=== PATIENT | female | born 1940 | race Caucasian/White ===

== ENCOUNTER → 2016-11-18 | Outpatient (CLI) | payer OTHER ==
[2016-11-18 15:54] LABS: MAGNESIUM 1.9 mg/dL (1.6-2.4)
== END ==
LOC: LAB 15:21
PROVIDERS: ATTEND Specialist
DX: I50.21 Acute systolic (congestive) heart failure (principal)
CPT/HCPCS: 36415; 83735; 83880

== ENCOUNTER → 2016-11-19 | Outpatient (CLI) | payer OTHER | LOC: MMPC 10:00 | PROVIDERS: ATTEND Specialist | DX: I50.21 Acute systolic (congestive) heart failure (principal); I34.0 Nonrheumatic mitral (valve) insufficiency; D17.79 Benign lipomatous neoplasm of other sites | CPT/HCPCS: 99213; G0463 ==

== ENCOUNTER → 2017-01-11 | Outpatient (CLI) | payer OTHER ==
[2017-01-11 11:40] LABS: BASOPHILS # (AUTO) 0.06 10*3/UL; BASOPHILS % (AUTO) 0.9 % (0-1); EOSINOPHILS % (AUTO) 5.3 % (0-8); HEMATOCRIT 41.6 % (37.0-47.0); HEMOGLOBIN 13.8 g/dL (12.0-16.0); IMM GRAN % (AUTO) 0 % (0-5); IMM GRAN# (AUTO) 0 10*3/UL; LYMPHOCYTES # (AUTO) 2.28 10*3/uL; LYMPHOCYTES % (AUTO) 34.7 % (10-50); MEAN CORPUSCULAR HEMOGLOBIN 31.3 PG (27-31); MEAN CORPUSCULAR HGB CONC 33.2 g/dL (33-37); MEAN PLATELET VOLUME 9.8 FL (7.4-12.2); MONOCYTES # (AUTO) 0.48 10*3/UL (0.3-0.8); MONOCYTES % (AUTO) 7.3 % (5-15); NEUTROPHILS % (AUTO) 51.8 % (50-80); RDW COEFFICIENT OF VARIATION 14.6 % (11.5-14.5); RED BLOOD COUNT 4.41 10^6/uL (4.20-5.40); WHITE BLOOD COUNT 6.57 10^3/uL (4.8-10.8)
[2017-01-11 11:46] LABS: PROTHROMBIN TIME 10.1 secs (9.7-11.4)
[2017-01-11 11:49] LABS: BILIRUBIN,TOTAL 0.6 mg/dL (0.3-1.2); BUN/CREATININE RATIO 16.66 (6-20); CALCIUM 9.4 mg/dL (8.7-10.7); CREATININE 1.2 mg/dL (0.50-1.20); POTASSIUM 4.3 meq/L (3.8-5.2); TOTAL PROTEIN 6.8 g/dL (6.1-8.0)
[2017-01-11 11:50] LABS: HEMOGLOBIN A1C 5.75 % (4.2-6.0); MEAN BLOOD GLUCOSE (CALC) 105.475 mg/dL
[2017-01-11 12:53] LABS: PLATELET MORPHOLOGY COMMENT NORMAL MORPHOLOGY (NORM)
== END ==
LOC: LAB 11:13
PROVIDERS: ATTEND Radiology Diagnostic Radiology
DX: E11.9 Type 2 diabetes mellitus without complications (principal); R91.8 Other nonspecific abnormal finding of lung field
CPT/HCPCS: 36415; 80053; 83036; 85025; 85610; 85730

== ENCOUNTER → 2017-04-08 | Outpatient (CLI) | payer OTHER | LOC: MMPC 10:00 | PROVIDERS: ATTEND Specialist | DX: R06.09 Other forms of dyspnea (principal); M94.0 Chondrocostal junction syndrome [Tietze]; D17.4 Benign lipomatous neoplasm of intrathoracic organs; I49.8 Other specified cardiac arrhythmias; E11.9 Type 2 diabetes mellitus without complications; R60.0 Localized edema; I73.9 Peripheral vascular disease, unspecified | CPT/HCPCS: 99213; G0463 ==

== ENCOUNTER → 2017-06-05 | Outpatient (CLI) | payer OTHER ==
--- NOTE | 2017-06-06 12:06 | DI ---
RIGHT KNEE, 06/05/2017 12:36 PM: Clinical History: Right knee pain. Previous Exam: None at this facility. 3 views are submitted. The AP projection is a standing view. On the sunrise view, there is a vertical fracture through the patella on the lateral aspect. There is moderately severe to severe lateral com partment joint space narrowing. There is osteoporosis. [place]: Nondisplaced vertically oriented fracture through the lateral third of the patella. There is joint sp judith narrowing in the lateral compartment.
== END ==
LOC: RAD 13:34
PROVIDERS: ATTEND Physician Assistant Surgical
DX: M25.561 Pain in right knee (principal); S82.091A Other fracture of right patella, initial encounter for closed fracture
CPT/HCPCS: 73562

== ENCOUNTER 2017-07-15 13:31 | Inpatient (IN) ==
[2017-07-15] MEDS ORDERED: Sodium Chloride 0.9% 1,000 ML PRIMARY IV ONE ×2 (13:58→17:00)
[2017-07-15] MEDS ORDERED: ASPIRIN 81 MG (BABY) CHEWABLE TABLET PO ONE (13:58)
[2017-07-15] MEDS ORDERED: NORMAL SALINE 10 ML SYRINGE FLUSH IVP PRN ×2 (13:58→18:33)
--- NOTE | 2017-07-15 14:01 | EKG ---
[address] [address] Measurements Intervals [place] Rate: 67 P: -20 TN: 155 QRS: 34 QRSD: 96 T: 14 QT: 393 QTc: 408 Interpretive Statements SINUS RHYTHM WITH OCCASIONAL SUPRAVENTRICULAR PREMATURE COMPLEXES INDETERMINATE AXIS PATTERN CONSISTENT WITH PULMONARY DISEASE INTERPRETATION BASED ON A DEFAULT AGE OF 40 YEARS No previous ECG available for comparison Electronically Signed On 07-16-17 08:31:19 MDT by Yaya Jarvis MD [email or web address]
[2017-07-15 14:06] LABS: BASOPHILS # (AUTO) 0.01 10*3/UL; BASOPHILS % (AUTO) 0.1 % (0-1); EOSINOPHILS # (AUTO) 0.02 10*3/UL; EOSINOPHILS % (AUTO) 0.1 % (0-8); Hematocrit [HCT] 40.3 % (37.0-47.0); Hemoglobin [HGB] 13.9 g/dL (12.0-16.0); LYMPHOCYTES # (AUTO) 1.32 10*3/uL; MEAN CORPUSCULAR HGB CONC 34.5 g/dL (33-37); MEAN CORPUSCULAR VOLUME 92.9 FL (81-99); MEAN PLATELET VOLUME 10.2 FL (7.4-12.2); MONOCYTES # (AUTO) 0.56 10*3/UL (0.3-0.8); NEUTROPHILS # (AUTO) 11.97 10*3/UL; NEUTROPHILS % (AUTO) 86.2 % (50-80); RED BLOOD COUNT 4.34 10^6/uL (4.20-5.40)
[2017-07-15 14:12] LABS: BLOOD UREA NITROGEN 33 mg/dL (7-22); SERUM ALBUMIN 4.1 g/dL (3.5-4.8)
[2017-07-15 14:30] LABS: PLATELET MORPHOLOGY COMMENT NORMAL MORPHOLOGY (NORM); RBC MORPHOLOGY COMMENT NORMAL MORPHOLOGY (NORM); WBC MORPHOLOGY COMMENT NORMAL MORPHOLOGY (NORM)
--- NOTE | 2017-07-15 15:04 | DI ---
PA /LATERAL CHEST X-RAY, 07/15/2017 2:00 PM : Clinical History: Right-sided chest pain. Previous Exam: 08/30/2015. There is no acute soft tissue or bony abnormality. There is cardiomegaly with mild CHF. There is disc oid atelectasis in the lingular segment. There is a poorly defined density on the PA film just superi or to the minor fissure. This may be located in the anterior segment of the right upper lobe. No defi nite infiltrate or pleural effusion is present. Mediastinal structures are normal. There are no defin ite pulmonary nodules. Readin. Cardiomegaly with mild CHF. 2. There is a poorly defined density in the right midlung field just superior to the minor fissure a nd this may be in the anterior segment of the right upper lobe.
[2017-07-15] MEDS ORDERED: Sodium Chloride 0.9% 500 ML PRIMARY IV ONE (15:15)
--- NOTE | 2017-07-15 16:23 | DI ---
CT ANGIOGRAM OF THE CHEST, 07/15/2017 3:14 PM : Clinical History: Chest pain. Elevated D-dimer test. The patient has been treated for lung cancer. Previous Exam: None at this facility. Scans are performed from the base of the neck to the lower lung bases following IV administration of 50 mL of Isovue 300. Proprietary automated bolus tracking software was not used to verify the timing of the injection. The base of the neck and thoracic inlet are normal. There are no abnormal axillary, supraclavicular, mediastinal, or hilar nodes. The heart is normal. There is pulmonary arterial hypertension with prese nce of clot in the distal portion of the right main pulmonary artery with a small "saddle" embolus ex tending into branches to the right upper lobe and to the superior segment of the right lower lobe. Cl ots are present in branches to the right middle lobe and also to the basal segments of the right lowe r lobe. No definite clots are seen in the left lung. Multiple pleural-based patchy densities are pres ent in the superior segment of the right upper lobe consistent with small pulmonary infarcts. There i s a 15 mm noncalcified nodule in the posterobasal segment of the right lower lobe that presumably rep resents the lung cancer. There is an 8 mm nodule in the left adrenal gland. The right adrenal gland a nd the spleen and the visualized portions of the liver and pancreas are normal. READIN. There are pulmonary emboli in branches to all lobes of the right lung with a small "saddle" embol us extending between right upper lobe branches and the branch to the superior segment of the right lo wer lobe. Small patchy pulmonary infarcts are present in the anterior segment of the right upper lobe corresponding to the density seen on the recent chest x-ray. No pulmonary emboli are noted in the le ft lung. 2. There is a 15 mm noncalcified nodule in the posterobasal segment of the right lower lobe that pre sumably represents the known lung cancer. There is no adenopathy noted. 3. There is an 8 mm nodule in the left adrenal gland.
[2017-07-15] MEDS ORDERED: LIDOCAINE W/ SODIUM BICARB 0.5 ML SYR SUBD PRN (18:33)
[2017-07-15] MEDS ORDERED: ONDANSETRON 4 MG/2 ML VIAL IVP PRN (18:33)
[2017-07-15] MEDS ORDERED: ACETAMINOPHEN 325 MG TABLET PO PRN (18:33)
[2017-07-15] MEDS ORDERED: LORazepam 1 MG TABLET PO PRN (18:45)
[2017-07-15] MEDS: ENOXAPARIN SODIUM 100 MG/1 ML SYRINGE SUBCUT SCH (20:35)
[2017-07-15] MEDS ORDERED: DEXTROSE 50%-WATER SYRINGE 50 ML SYRINGE IVP PRN (21:10)
[2017-07-15] MEDS ORDERED: Glucagon Inj Vial 1 MG/ML VIAL IM PRN (21:10)
[2017-07-15] MEDS ORDERED: Insulin Sliding Scale Protocol SUBCUT PRN (21:10)
[2017-07-15] MEDS ORDERED: DEXTROSE 31 GM GEL PO PRN (21:10)
--- NOTE | 2017-07-15 21:35 | PDOC ---
History and Physical - History of Present Illness Date and Time of Service: 07/15/20172058 Chief Complaint: Chest pains History of Present Illness: This very pleasant 76-year-old female who has a recent diagnosis of lung cancer treated with radiation therapy and completed that as sole therapy 2 and half months ago, diabetes mellitus type II, amongst other medical issues. She presents with complaints of chest pains that started on Friday. She states that she gets chronic chest pains from GERD and heartburn symptoms, but she developed this on her right side. It then worked its way down and she felt very short of breath and had some pleuritic pain. Due to all the symptoms she came in for evaluation today, she denied any fever, hemoptysis, chills, cough, nausea or vomiting. She was found to have a very massively elevated d-dimer and was found to have a right-sided pulmonary emboli that was characterized as a "saddle" PE with several numerous smaller branch PEs as well. Patient's never had a blood clot before. She still smokes. She is not had any recent trauma or surgery. She had a shot in her knee earlier today for chronic knee pain after her kneecap fracture in the past. She is normally on oxygen at night but was slightly hypoxic in the emergency room. Her pulmonary embolism severity index score was 138, class V giving her a 10-24.5% 30 day mortality. Past Medical History Medical History: 1. Diabetes mellitus type II. 2. Lung cancer with a 15 mm right lower lobe noncalcified nodule. 3. Tobacco abuse. 4. Depression. 5. Chronic lower extremity edema. 6. COPD on oxygen at nighttime. 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 2. 2. Cholecystectomy. 3. Appendectomy. 4. Hysterectomy. 5. Back surgery 2 Pertinent Family History: She has a daughter that had multiple sclerosis and of blood clot complications. Patient's mother lived till 101 years of age. Her father of stroke complications and had diabetes. Past Social History: for over 60 years. 2 daughters, one living. Retired. Smokes. Does not drink very often and minimal amounts of alcohol at that point. Tobacco Use: Current Every Day Smoker Substance Use Type: None Alcohol Use: Rarely Medication / Allergies Home Medications: Home Medications Medication Instructions Recorded Confirmed Type Folic Acid 1 tab PO DAILY tab 07/30/16 07/15/17 History Pot Chloride/Pot Bicarb/Cit AC 1 tab PO qdaily tab 07/30/16 07/15/17 History [Potassium Cl 25 Meq Tab Eff] Spironolactone 1 tab PO DAILY tab 07/30/16 07/15/17 History Bumetanide 2 mg PO DAILY tab 04/08/17 07/15/17 History Citalopram Hydrobromide [Celexa] 1 tab PO QD #90 04/08/17 07/15/17 History Lorazepam [Ativan] 1 tab PO QD PRN #30 04/08/17 07/15/17 History Sitagliptin Phos/Metformin HCl 1 each PO QD tab 04/08/17 07/15/17 History [Janumet 50-500 Mg Tablet] Allergies/Adverse Reactions: Allergies Allergy/AdvReac Type Severity Reaction Status Date / Time Penicillins AdvReac Intermediate hives Verified 07/15/17 18:44 Sulfa (Sulfonamide AdvReac Intermediate hives Verified 07/15/17 18:44 Antibiotics) codien Allergy Severe anaphlaxis Uncoded 07/15/17 18:44 Review of Systems - Review of Systems All Systems: Reviewed & No Additional Complaints Except as Stated (I did a 12 point review systems and it was negative other than that discussed in the history of present illness and that noted below.) - Constitutional Constitutional: REPORTS: Other (The patient has had some weight fluctuations, but has maintained about 190-195 pounds recently) - Respiratory Respiratory: REPORTS: Dyspnea with Exertion, Pleuritic Pain - Cardiovascular Cardiovascular: REPORTS: Chest Pain, See HPI - Gastrointestinal Gastrointestinal / Abdominal: REPORTS: Diarrhea (Generally chronic but was constipated after radiation therapy for a while) - Genitourinary Genitourinary: REPORTS: Negative System Review - Musculoskeletal Musculoskeletal: REPORTS: Joint Pain - Knees (Especially the right knee which had a prior patellar fracture. She had a steroid shot in her right knee today.) - Hematlogic / Lymphatic Hematologic / Lymphatic: REPORTS: Other (History of lung cancer as mentioned, no history of blood clots.) - Neurological Neurologic: REPORTS: Negative System Review - Psychiatric Psychiatric: REPORTS: Depressed (Controlled with medications) Exam - Vitals Vital Signs: Vital Signs Temperature 97.4 F Temperature Source Temporal Artery Scan Pulse Rate [Pulse Oximeter] 68 Pulse Rate 53 Respiratory Rate 20 Blood Pressure [Right Arm] 134/60 Blood Pressure 127/55 Pulse Ox 87 Oxygen Delivery Method Room Air Height 5 ft 1 in Weight 191 lb - General General Appearance: POSITIVE: No Acute Distress, Cooperative - Head Head Exam: POSITIVE: Normal Inspection, Normocephalic, Atraumatic - Eye Eye Exam: POSITIVE: No Scleral Icterus - ENT ENT Exam: POSITIVE: Mucous Membranes Moist - Neck Neck Exam: POSITIVE: Normal Inspection, No Tenderness, No Thyromegaly - Respiratory Respiratory Exam: POSITIVE: Breathing Non Labored, Normal to Percussion and Palpation, Coarse Breath Sounds - Cardiovascular Cardiovascular Exam: POSITIVE: No Murmur, No Clicks, No Gallops, No Rubs, Irregular Rhythm, No JVD - GI/Abdominal GI/Abdominal Exam: POSITIVE: Normal Bowel Sounds, Non Tender, Non Distended, Soft - Rectal Rectal Exam: POSITIVE: Deferred - External Exam: POSITIVE: Deferred Exam: POSITIVE: Deferred - Extremities Extremities Exam: POSITIVE: No Clubbing Present, No Edema Present, No Cyanosis Present - Back Back Exam: POSITIVE: Normal Inspection, No CVA Tenderness - Neurological Neurological Exam: POSITIVE: Alert, Oriented x 3, No Facial Droop, Speech Intact / Clear, Moves All Extremities Equally - Psychiatric Psychiatric Exam: POSITIVE: Normal Affect, Normal Mood - Integumentary Integumentary Exam: POSITIVE: Normal Color, Warm, Dry, Intact - Central Line Examination Central Line Present on Admission: No Results - Labs CBC and BMP: 07/15/17 13:32 07/15/17 13:32 Labs - Last 24 Hours: Laboratory Results 07/15/17 07/15/17 07/15/17 Range/Units 13:32 14:00 15:14 WBC 13.90 H (4.8-10.8) 10^3/uL RBC 4.34 (4.20-5.40) 10^6/uL Hgb 13.9 (12.0-16.0) g/dL Hct 40.3 (37.0-47.0) % MCV 92.9 (81-99) FL MCH 32.0 H (27-31) PG MCHC 34.5 (33-37) g/dL RDW Std Deviation 46.1 (39-50) fL RDW Coeff of Davina 13.9 (11.5-14.5) % Plt Count 238 (140-350) 10*3/uL MPV 10.2 (7.4-12.2) FL Immature Gran % (Auto) 0.1 (0-5) % Neut % (Auto) 86.2 H (50-80) % Lymph % (Auto) 9.5 L (10-50) % [place] % (Auto) 4.0 L (5-15) % Eos % (Auto) 0.1 (0-8) % Baso % (Auto) 0.1 (0-1) % Immature Gran # (Auto) 0.02 10*3/UL Neut # (Auto) 11.97 10*3/UL Lymph # (Auto) 1.32 10*3/uL [place] # (Auto) 0.56 (0.3-0.8) 10*3/UL Eos # (Auto) 0.02 10*3/UL Baso # (Auto) 0.01 10*3/UL WBC Morphology Comment Normal morphology (NORM) Plt Morphology Comment Normal morphology (NORM) RBC Morph Comment Normal morphology (NORM) PT 9.4 L (9.7-11.4) secs INR 0.89 (0.00-5.90) N/A APTT 31.3 (22.6-36.2) SECS D-Dimer 10.69 H (0.00-0.59) mg/L Sodium 137 (135-145) meq/L Potassium 4.5 (3.8-5.2) meq/L Chloride 97 L (98-112) meq/L Carbon Dioxide 27 (23-33) meq/L Anion Gap 13 (5-20) BUN 33 H (7-22) mg/dL Creatinine 1.5 H (0.50-1.20) mg/dL Estimated GFR 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 Setter BUN/Creatinine Ratio 22.00 H (6-20) Glucose 141 H (78-110) mg/dL Calculated Osmolality 292.0 (267-292) mOsm/kg Calcium 9.9 (8.7-10.7) mg/dL Total Bilirubin 0.5 (0.3-1.2) mg/dL AST 18 (8-39) IU/L ALT 26 (9-52) IU/L Alkaline Phosphatase 94 (38-126) IU/L CK-MB (CK-2) 0.71 (0.00-5.00) NG/ML Troponin I < 0.012 (< 0.040) ng/mL NT-Pro-B Natriuret Pep 949 H (0-450) PG/ML Total Protein 7.5 (6.1-8.0) g/dL Albumin 4.1 (3.5-4.8) g/dL Globulin 3.4 (2.50-4.10) g/dL Albumin/Globulin Ratio 1.20 L (1.3-2.0) mg/g - EKG Data -: EKG Interpreted by Me Rate: Normal EKG Shows Normal: Sinus Rhythm - Imaging Status: Image Reviewed by Me (CT scan of the chest on my view does not show any evidence of pneumonia. There does appear to be evidence of right-sided blood clots.) Assessment and Plan - Patient Problems (1) Pulmonary embolism Current Visit: Yes Status: Acute (2) Lung cancer Current Visit: Yes Status: Acute Qualifiers: Laterality: right Lung location: lower lobe of lung Qualified Description: Malignant neoplasm of lower lobe of right lung Qualifier Code (s): (C34.31) Malignant neoplasm of lower lobe, right bronchus or lung (3) Adrenal mass Current Visit: Yes Status: Acute (4) Diabetes mellitus type II, controlled Current Visit: Yes Status: Acute Qualifiers: Diabetes mellitus complication status: without complication Diabetes mellitus terminal clerk insulin use: without terminal clerk use Qualified Description : Controlled type 2 diabetes mellitus without complication, without long-term current use of insulin Qualifier Code(s): (E11.9) Type 2 diabetes mellitus without complications (5) Peripheral edema Current Visit: Yes Status: Acute (6) Wandering (atrial) pacemaker Current Visit: Yes Status: Acute - Assessment / Plan Additional Assessment/Plan Details: Given the PESI score, and class V status, the patient is very high risk, and should be admitted for monitoring, and evaluation for right heart strain. Thus far, she is not hypotensive. Her BNP is elevated a little bit and I'll check it again in the morning, along with an echocardiogram. Given the lung cancer, I cannot assume that she is cancer free and have to presume that this is the provoked cause of the blood clot. I think it best to keep the patient on Lovenox initially, arrange a hematology/oncology follow-up, and definitely follow on this adrenal masses that certainly could be metastasis from the lung cancer. Hold off on Janumet during the hospital stay, especially with CT scan done tonight with contrast. Sliding scale insulin for diabetes during the hospital stay. Oxygen as necessary. If there is any evidence of right heart strain, I think we need to consider transfer for catheter directed lysis of PE vs. systemic code status is full code, discussed with the patient and family The patient and I spoke in depth regarding Coumadin versus Xarelto versus Eliquis, including all risks and benefits, risks being bleeding complications and possible pitfalls of not being able to reverse bleeding with antidotes, and benefits cream treatment of blood clot, lack of drug interactions, and ease of therapy in terms of lab monitoring. However, given the cancer recently, lovenox. the family and the patient agree with the plan
[2017-07-15] MEDS ORDERED: NICOTINE 21 MG /DAY PATCH TRANSDERM ONE (22:19)
[2017-07-15] MEDS ORDERED: NICOTINE 2 MG GUM BUCCAL PRN (22:19)
--- NOTE | 2017-07-15 23:03 | PDOC ---
Chest Pain HPI - General Chief Complaint: Chest Pain Stated Complaint: CHEST PAIN Date Seen by Provider: 07/15/17 Time Seen by Provider: 13:40 Source: Patient Exam Limitations: POSITIVE: No limitations Treatment Prior to Arrival: REPORTS: None Nurse's Notes Reviewed & Considered: Yes - History of Present Illness Initial Comments: The patient is a 76-year-old female. Patient's chief complaint is right sided chest pain which is exacerbated by inspiration and by torsion of her torso. Patient has a history of cancer to her right lung which was diagnosed and treated with radiation last November. Her oncologist is Dr. Simpson in [place]. The patient called her oncologist with these symptoms, and her oncologist advised her to come to the emergency room for evaluation. Patient has a history of COPD and continues to smoke a pack of cigarettes per day. She also has a history of type II diabetes mellitus. She's had a cholecystectomy and back surgery. No cough. No fevers or chills. Body Location Affected: REPORTS: Chest Timing: REPORTS: Abrupt Duration: <24 hours Severity: Moderate Persistent/Worse since (date): 07/14/17 Context: DENIES: Sleep, Rest, Emotional Upset, Activity, Exertion, Other Quality: REPORTS: "Pain", Sharpness, Stabbing Radiation: REPORTS: None Associated Symptoms: REPORTS: Shortness of Breath, Hurts to Breathe. DENIES: Nausea, Vomiting, Diaphoresis, Palpitations, Productive Cough (blood), Productive Cough (sputum), Weakness, Dizziness Modifying Factors: improves with: Deep breathing, Position Change, Pressing On Area Similar Symptoms Previously: No Recently seen/treated/hospitalized: Yes (as above) Any Prior Injuries Related to Current Complaint?: No - Patient Home Medications Home Medications: Home Medications Folic Acid 1 tab PO DAILY tab 07/30/16 Pot Chloride/Pot Bicarb/Cit AC [Potassium Cl 25 Meq Tab Eff] 1 tab PO qdaily tab 07/30/16 Spironolactone 1 tab PO DAILY tab 07/30/16 Bumetanide 2 mg PO DAILY tab 04/08/17 Citalopram Hydrobromide [Celexa] 1 tab PO QD #90 04/08/17 Lorazepam [Ativan] 1 tab PO QD PRN #30 04/08/17 Sitagliptin Phos/Metformin HCl [Janumet 50-500 Mg Tablet] 1 each PO QD tab - Patient Allergies Allergies/Adverse Reactions: Allergies Allergy/AdvReac Type Severity Reaction Status Date / Time Penicillins AdvReac Intermediate hives Verified 07/15/17 18:44 Sulfa (Sulfonamide AdvReac Intermediate hives Verified 07/15/17 18:44 Antibiotics) codien Allergy Severe anaphlaxis Uncoded 07/15/17 18:44 Past Medical History - heen HEENT History: Denies History Cardiovascular History: Denies History, CHF Respiratory History: Other (please comment) Additional Respiratory History: RIGHT LUNG CA WITH RADIATION TREATMENTS 11/2016 , HOME O2 USE AT NIGHT 2.5L/NC Gastrointestinal History: Denies History Genitourinary History: Denies History Endocrine History: Type 2 Diabetes (oral) Musculoskeletal History: Denies History Prosthesis or Implant: No Neurological History: Denies History Blood Disorders: Denies History Psychiatric History: Depression History of Sexually Transmitted Diseases: No Female Reproductive History: Hysterectomy Obstetrical History: Delivery Additional Obstetrical History: x2 Cancer History: Lung In Past Year Been Physically Harmed or Verbally Threatened: No (PER PATIENT) History of MDRO: No History of Other Communicable Diseases: No Tobacco Use: Current Every Day Smoker Alcohol Use: Rarely Substance Use Type: None Previous Surgical History: Yes Type / Date of Surgery: BACK x3, HYSTERECTOMY, CHOLECYSTECTOMY, x2, BILATERAL CATARACT REMOVAL Anesthesia Reactions: No Malignant Hyperthermia: No Family History of Malignant Hyperthermia: No Significant Family History: No pertinent family hx Past Medical History Reviewed: Reviewed - No Changes ROS - Limitations ROS Limitations: No Limitations Constitution: REPORTS: Denies Symptoms Cardiovascular: REPORTS: Chest Pain (As above) Respiratory: REPORTS: Hurts To Breathe, Shortness Of Breath Neurological: REPORTS: Denies Neuro Symptoms Gastrointestinal: REPORTS: Denies GI Symptoms Endocrine: REPORTS: Denies Symptoms Musculoskeletal: REPORTS: Denies MS Symptoms Genitourinary: REPORTS: Denies Symptoms Eyes: REPORTS: Denies Symptoms ENT: REPORTS: Denies Symptoms Skin: REPORTS: Denies Skin Symptoms Lympathic: REPORTS: Denies Lympathic Symptoms Immunologic: POSITIVE: Denies Symptoms Psychiatric: POSITIVE: Denies Psych Symptoms Chest Pain PE - General Appearance General Appearance: REPORTS: Alert, Cooperative, No Acute Distress, No Evidence of Trauma - HEENT HEENT: POSITIVE: Head Inspection Nml, Eyes Inspection Nml, Ears Inspection Nml, Nose Inspection Nml, Oral/Dental Inspect. Nml, Pharynx Inspect. Nml, PERRL, EOMI - Neck Neck: REPORTS: Normal Inspection, No Carotid Bruit - Respiratory Respiratory: REPORTS: No Respiratory Distress, Breath Sounds Normal, Distinct Pain on Movement, See Diagram. DENIES: Chest Non-Tender, Wheezes, Rales, Rhonchi, Respiratory Distress, Right Arm Pain, Left Arm Pain, Trunk Pain, Splinting, Decreased Air Movement - Cardiovascular Cardiovascular: REPORTS: Regular Rate and Rhythm, Heart Sounds Normal, Equal Pulses, Strong Pulses, No Murmur, No Gallop, No Friction Rub, No JVD Peripheral Pulses: Radial (R): 2+, Radial (L): 2+ - Abdomen Abdomen: Soft: (All Quadrants), Normal Bowel Sounds: (All Quadrants), Denies Tenderness: (All Quadrants), No Splenomegaly: (All Quadrants), No Hepatomegaly: (All Quadrants), No Guarding: (All Quadrants), No Rebound: (All Quadrants), No Palpable Pulse: (All Quadrants), No Palpabale Mass: (All Quadrants), No Distention: (All Quadrants), No Rigidity: (All Quadrants) - Skin Skin: REPORTS: Intact, Normal For Race, Warm, Dry, No Rash - Extremities Extremity: Non-Tender: (All Extremities), Normal ROM: (All Extremities), Normal Inspection: (All Extremities) - Neurological / Psychological Neurological: POSITIVE: 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 Chest x-ray shows lesion, right lung. Lab Results Reviewed: Yes Lab Results:: Laboratory Results 07/15/17 07/15/17 07/15/17 Range/Units 13:32 14:00 15:14 WBC 13.90 H (4.8-10.8) 10^3/uL RBC 4.34 (4.20-5.40) 10^6/uL Hgb 13.9 (12.0-16.0) g/dL Hct 40.3 (37.0-47.0) % MCV 92.9 (81-99) FL MCH 32.0 H (27-31) PG MCHC 34.5 (33-37) g/dL RDW Std Deviation 46.1 (39-50) fL RDW Coeff of Davina 13.9 (11.5-14.5) % Plt Count 238 (140-350) 10*3/uL MPV 10.2 (7.4-12.2) FL Immature Gran % (Auto) 0.1 (0-5) % Neut % (Auto) 86.2 H (50-80) % Lymph % (Auto) 9.5 L (10-50) % [place] % (Auto) 4.0 L (5-15) % Eos % (Auto) 0.1 (0-8) % Baso % (Auto) 0.1 (0-1) % Immature Gran # (Auto) 0.02 10*3/UL Neut # (Auto) 11.97 10*3/UL Lymph # (Auto) 1.32 10*3/uL [place] # (Auto) 0.56 (0.3-0.8) 10*3/UL Eos # (Auto) 0.02 10*3/UL Baso # (Auto) 0.01 10*3/UL WBC Morphology Comment Normal morphology (NORM) Plt Morphology Comment Normal morphology (NORM) RBC Morph Comment Normal morphology (NORM) PT 9.4 L (9.7-11.4) secs INR 0.89 (0.00-5.90) N/A APTT 31.3 (22.6-36.2) SECS D-Dimer 10.69 H (0.00-0.59) mg/L Sodium 137 (135-145) meq/L Potassium 4.5 (3.8-5.2) meq/L Chloride 97 L (98-112) meq/L Carbon Dioxide 27 (23-33) meq/L Anion Gap 13 (5-20) BUN 33 H (7-22) mg/dL Creatinine 1.5 H (0.50-1.20) mg/dL Estimated GFR Ndt Inspector BUN/Creatinine Ratio 22.00 H (6-20) Glucose 141 H (78-110) mg/dL Calculated Osmolality 292.0 (267-292) mOsm/kg Calcium 9.9 (8.7-10.7) mg/dL Total Bilirubin 0.5 (0.3-1.2) mg/dL AST 18 (8-39) IU/L ALT 26 (9-52) IU/L Alkaline Phosphatase 94 (38-126) IU/L CK-MB (CK-2) 0.71 (0.00-5.00) NG/ML Troponin I < 0.012 (< 0.040) ng/mL NT-Pro-B Natriuret Pep 949 H (0-450) PG/ML Total Protein 7.5 (6.1-8.0) g/dL Albumin 4.1 (3.5-4.8) g/dL Globulin 3.4 (2.50-4.10) g/dL Albumin/Globulin Ratio 1.20 L (1.3-2.0) mg/g EKG Interpreted/Reviewed By Me:: Yes EKG Interpretation:: POSITIVE: Normal Sinus Rhythm, Normal Rate, Normal Intervals, Normal [place], Normal QRS, Normal ST/T - Patient's Progress Pain Medication Addressed: POSITIVE: Not Applicable School/Work Release Addressed: POSITIVE: Not Applicable Re-Examine Time: 16:30 Re-Examine Comment: Diagnosis of pulmonary emboli discussed with patient and her . Patient requested that I inform her oncologist in [place], Dr. Simpson, of these findings, and this was done. Patient admitted to start anticoagulation and for further evaluation and treatment. Patient hydrated with 500 mL normal saline before and after her CTA scan . Status: POSITIVE: Unchanged, Re-Examined - Consult Consult (If Yes, Name of Consulting MD & Time Called): Yes (Dr. Fish, hospitalist, 0900) Consulting MD will see pt:: POSITIVE: [facility] Admit Counseled: POSITIVE: Patient, RE: Lab Results, RE: Radiology Results, RE: DX, RE : Need for F/U Patient Care Time - Estimated PCT Patient Care Time (In Minutes): 65 Vital Signs - Recent Vital Signs Vital Signs: Vital Signs (Last 8 hours) Temp Pulse Pulse Resp BP BP Pulse Ox 07/15/17 21:00 97.6 F 55 L 20 143/58 94 07/15/17 18:44 20 07/15/17 18:33 97.4 F 68 20 134/60 87 07/15/17 17:50 97.2 F 53 L 19 127/55 96 - VS Reviewed Vital Signs Reviewed: Yes Discharge Clinical Impression: Pulmonary embolism Discharge Disposition: Admit to Inpatient Condition: Fair Date Decision to Admit to Inpatient: 07/15/17 Time Decision to Admit to Inpatient: 16:15
[2017-07-16 04:52] LABS: BASOPHILS # (AUTO) 0.01 10*3/UL; BASOPHILS % (AUTO) 0.1 % (0-1); EOSINOPHILS # (AUTO) 0.09 10*3/UL; Hematocrit [HCT] 34.7 % (37.0-47.0); Hemoglobin [HGB] 11.7 g/dL (12.0-16.0); LYMPHOCYTES # (AUTO) 1.54 10*3/uL; MEAN CORPUSCULAR HEMOGLOBIN 31.8 PG (27-31); MEAN CORPUSCULAR HGB CONC 33.7 g/dL (33-37); MEAN CORPUSCULAR VOLUME 94.3 FL (81-99); MEAN PLATELET VOLUME 10.1 FL (7.4-12.2); MONOCYTES # (AUTO) 0.55 10*3/UL (0.3-0.8); MONOCYTES % (AUTO) 6.2 % (5-15); NEUTROPHILS # (AUTO) 6.72 10*3/UL; NEUTROPHILS % (AUTO) 75.3 % (50-80); RED BLOOD COUNT 3.68 10^6/uL (4.20-5.40)
[2017-07-16 05:00] LABS: PLATELET MORPHOLOGY COMMENT NORMAL MORPHOLOGY (NORM); RBC MORPHOLOGY COMMENT NORMAL MORPHOLOGY (NORM); WBC MORPHOLOGY COMMENT NORMAL MORPHOLOGY (NORM)
[2017-07-16 05:04] LABS: BUN/CREATININE RATIO 23.33 (6-20)
[2017-07-16] MEDS: Insulin Lispro Flexpen 300 UNIT/3 ML INSULN.PEN SUBCUT SCH ×4 (07:15→21:09)
[2017-07-16] MEDS: NICOTINE 14 MG /DAY PATCH TRANSDERM SCH (08:56)
[2017-07-16] MEDS: FOLIC ACID 1 MG TABLET PO SCH (08:56)
[2017-07-16] MEDS: CITALOPRAM 20 MG TABLET PO SCH (08:56)
[2017-07-16] MEDS: ENOXAPARIN SODIUM 100 MG/1 ML SYRINGE SUBCUT SCH ×2 (08:56→20:04)
[2017-07-16] MEDS ORDERED: NICOTINE 21 MG /DAY PATCH TRANSDERM SCH (09:00)
[2017-07-16] MEDS: CALCIUM CARBONATE 500 MG (TUMS) CHEWABLE TABLET PO PRN ×2 (16:49→23:21)
--- NOTE | 2017-07-16 18:01 | PDOC(PROG) ---
Date and Time of Service: 07/16/2017, 1759 Interval History: No chest pain and no shortness breath. Still coughing. No nausea or vomiting. Objective : Data - Labs CBC and BMP: 07/16/17 04:31 07/16/17 04:31 Labs - Last 24 Hours: Laboratory Results 07/16/17 Range/Units 04:31 WBC 8.93 (4.8-10.8) 10^3/uL RBC 3.68 L (4.20-5.40) 10^6/uL Hgb 11.7 L (12.0-16.0) g/dL Hct 34.7 L (37.0-47.0) % MCV 94.3 (81-99) FL MCH 31.8 H (27-31) PG MCHC 33.7 (33-37) g/dL RDW Std Deviation 46.0 (39-50) fL RDW Coeff of [place]ina 13.9 (11.5-14.5) % Plt Count 208 (140-350) 10*3/uL MPV 10.1 (7.4-12.2) FL Immature Gran % (Auto) 0.2 (0-5) % Neut % (Auto) 75.3 (50-80) % Lymph % (Auto) 17.2 (10-50) % [place] % (Auto) 6.2 (5-15) % Eos % (Auto) 1.0 (0-8) % Baso % (Auto) 0.1 (0-1) % Immature Gran # (Auto) 0.02 10*3/UL Neut # (Auto) 6.72 10*3/UL Lymph # (Auto) 1.54 10*3/uL [place] # (Auto) 0.55 (0.3-0.8) 10*3/UL Eos # (Auto) 0.09 10*3/UL Baso # (Auto) 0.01 10*3/UL WBC Morphology Comment Normal morphology (NORM) Plt Morphology Comment Normal morphology (NORM) RBC Morph Comment Normal morphology (NORM) Sodium 139 (135-145) meq/L Potassium 4.4 (3.8-5.2) meq/L Chloride 106 (98-112) meq/L Carbon Dioxide 27 (23-33) meq/L Anion Gap 6 (5-20) BUN 28 H (7-22) mg/dL Creatinine 1.2 (0.50-1.20) mg/dL Estimated GFR (>60 ml/min/1.73m(2)) BUN/Creatinine Ratio 23.33 H (6-20) Glucose 104 (78-110) mg/dL Calculated Osmolality 293.0 H (267-292) mOsm/kg Calcium 8.9 (8.7-10.7) mg/dL Objective : Exam - General General Appearance: No Acute Distress, Cooperative Additional General Exam Details: Vital Signs - Last Taken Temperature 98.0 F 07/16/17 17:00 Pulse Rate 56 L 07/16/17 17:00 Respiratory Rate 20 07/16/17 17:00 Blood Pressure 133/50 07/16/17 17:00 Pulse Ox 95 07/16/17 17:00 Currently on 2 L per nasal cannula - Eye Eye Exam: No Scleral Icterus - ENT ENT Exam: Mucous Membranes Moist - Respiratory Respiratory Exam: Clear to Auscultation - Bilaterally, Breathing Non Labored - Cardiovascular Cardiovascular Exam: RRR, No Murmur, No Clicks, No Gallops, No Rubs, No JVD - GI/Abdominal GI/Abdominal Exam: Normal Bowel Sounds, Non Tender, Non Distended, Soft - Extremities Extremities Exam: No Clubbing Present, No Edema Present, No Cyanosis Present - Neurological Neurological Exam: Alert, Oriented x 3, No Facial Droop, Speech Intact / Clear, Moves All Extremities Equally Assessment and Plan - Patient Problems (1) Pulmonary embolism Current Visit: Yes Status: Acute (2) Lung cancer Current Visit: Yes Status: Acute Qualifiers: Laterality: right Lung location: lower lobe of lung Qualified Description: Malignant neoplasm of lower lobe of right lung Qualifier Code (s): (C34.31) Malignant neoplasm of lower lobe, right bronchus or lung (3) Adrenal mass Current Visit: Yes Status: Acute (4) Diabetes mellitus type II, controlled Current Visit: Yes Status: Acute Qualifiers: Diabetes mellitus complication status: without complication Diabetes mellitus nursing home insulin use: without intermediate teacher use Qualified Description : Controlled type 2 diabetes mellitus without complication, without long-term current use of insulin Qualifier Code(s): (E11.9) Type 2 diabetes mellitus without complications (5) Peripheral edema Current Visit: Yes Status: Acute (6) Wandering (atrial) pacemaker Current Visit: Yes Status: Acute - Assessment / Plan Additional Assessment/Plan Details: The CT scan unfortunately did not get completed as we would like to see to rule out any adrenal adenoma or adrenal tumor. They will repeat a CT scan tomorrow, I spoke with radiology regarding this. I think it's very important to know this information given the patient's lung cancer and current status of acute pulmonary emboli. Continue treatment with Lovenox for now. Will call oncology office tomorrow and arrange an appointment so that we can determine whether we should continue Lovenox or switch over to by mouth anticoagulant but I think the patient should be on anticoagulants for life. Cough is persistent, but no hemoptysis, watch for now. If remains stable tomorrow, we can get the answer on this adrenal issue, then hopefully home tomorrow. Patient to do her own Lovenox shots.
[2017-07-17 07:10] VITALS: TEMP 97.6
[2017-07-17] MEDS: Insulin Lispro Flexpen 300 UNIT/3 ML INSULN.PEN SUBCUT SCH ×2 (07:31→12:10)
[2017-07-17] MEDS: NICOTINE 14 MG /DAY PATCH TRANSDERM SCH (08:41)
[2017-07-17] MEDS: CITALOPRAM 20 MG TABLET PO SCH (08:42)
[2017-07-17] MEDS: FOLIC ACID 1 MG TABLET PO SCH (08:42)
[2017-07-17] MEDS: ENOXAPARIN SODIUM 100 MG/1 ML SYRINGE SUBCUT SCH (08:42)
[2017-07-17 11:10] VITALS: RESP 16
[2017-07-17] MEDS: CALCIUM CARBONATE 500 MG (TUMS) CHEWABLE TABLET PO PRN (14:10)
[2017-07-17] MEDS ORDERED: Apixaban 5 MG TABLET PO ONE (15:38)
--- NOTE | 2017-07-17 15:46 | DCSUMMARY ---
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 She was declared clear of cancer, and this was about 2-1/2 months ago. She came in with some chest pain, cough, and was found to have right-sided pulmonary emboli that was fairly large with several small peripheral pulmonary emboli on the right side. She is placed on oxygen, admitted, and placed on Lovenox therapy her PESI score put her in the class V range with a score of 138. We discussed various options and I gave her my anticoagulant disclosure as follows: "The patient and I spoke in depth regarding Coumadin versus Xarelto versus Eliquis, including all risks and benefits, risks being bleeding complications and possible pitfalls of not being able to reverse bleeding with antidotes, and benefits cream treatment of blood clot, lack of drug interactions, and ease of therapy in terms of lab monitoring. "I further discussed Lovenox in the setting of this patient having recent cancer. We treated the patient with Lovenox here in the hospital, and her cough did improve and her chest pain nearly completely resolved. Further, her oxygen saturations over the last half an hour on room air have ranged from 80-95%, with very few episodes of dipping into the 80% range. She states this is normal for her and she does this even prior to the pulmonary embolism and she watches her oxygen saturation at home. She feels she is at her baseline. And wants to go home, but she does not want to go on Lovenox shots. She prefers to go on oral anticoagulants. She chose eliquis. 6 breast good understanding of the risks and benefits and her is on this as well so she understands what to watch for. She was very upset at the localized bruising from Lovenox. Other medical problems remain stable through the hospital stay. I will note that we did have an adrenal adenoma noticed on the lung CTA scan. In that regard, I completed an abdominal CT scan and pelvis CT scan with and without to look at this closer. The final report is pending but I did speak with the radiologist and it appears to be a benign adenoma. I will have the patient follow with an oncologist, Dr. Geller, to make further determinations on monitoring to make sure this is not any sort of metastatic lesion. I made sure to tell the patient that in the setting of active cancer, Lovenox is the preferred therapy with morbidity and mortality benefits versus Coumadin. The data is not necessarily clear with Eliquis, however, in the setting of active malignancy. She feels that she'll side with what she was told about her lung cancer and that it is not active at this time. Today, chest pain is resolved, no shortness breath. Slight tinged hemoptysis, and cough is persistent but better. No nausea or vomiting. I told her if her hemoptysis worsen she should return for evaluation. Assessment and Plan: 1. As per discharge assessments noted 2. Disposition: Patient is discharged home. 3. Condition on discharge, stable and improved. 4. Diet: regular diet 5. Activities: resume normal activities 6. Follow-Up: 1. See Dr. Cordoba in one week 2. Dr. Geller on 07/30/2017 7. Medications at the Time of Discharge: Home Medications Medication Instructions Recorded Confirmed Type Folic Acid 1 tab PO DAILY tab 07/30/16 07/15/17 History Pot Chloride/Pot Bicarb/Cit AC 1 tab PO qdaily tab 07/30/16 07/15/17 History [Potassium Cl 25 Meq Tab Eff] Spironolactone 1 tab PO DAILY tab 07/30/16 07/15/17 History Bumetanide 2 mg PO DAILY tab 04/08/17 07/15/17 History Citalopram Hydrobromide [Celexa] 1 tab PO QD #90 04/08/17 07/15/17 History Lorazepam [Ativan] 1 tab PO QD PRN #30 04/08/17 07/15/17 History Sitagliptin Phos/Metformin HCl 1 each PO QD tab 04/08/17 07/15/17 History [Janumet 50-500 mg Tablet] Apixaban [Eliquis] 5 mg PO BID #74 tablet 07/17/17 Rx 8. Time, care, counseling and coordination of care for this discharge is greater than 30 minutes. Exam - Vitals Vital Signs: Vital Signs Height 5 ft 1 in Weight 196 lb 6.4 oz Vital Signs - Last Taken Temperature 97.6 F 07/17/17 11:09 Pulse Rate 52 L 07/17/17 11:09 Respiratory Rate 16 07/17/17 11:09 Blood Pressure 120/47 07/17/17 11:09 Pulse Ox 95 07/17/17 11:09 She was between 88-95% on room air - General General Appearance: POSITIVE: No Acute Distress, Cooperative - Head Head Exam: POSITIVE: Normal Inspection, Normocephalic, Atraumatic - Eye Eye Exam: POSITIVE: No Scleral Icterus - ENT ENT Exam: POSITIVE: Mucous Membranes Moist - Respiratory Respiratory Exam: POSITIVE: Clear to Auscultation - Bilaterally, Breathing Non Labored - Cardiovascular Cardiovascular Exam: POSITIVE: RRR, No Murmur, No Clicks, No Gallops, No Rubs, No JVD - GI/Abdominal GI/Abdominal Exam: POSITIVE: Normal Bowel Sounds, Non Tender, Non Distended, Soft - Extremities Extremities Exam: POSITIVE: No Clubbing Present, No Edema Present, No Cyanosis Present - Neurological Neurological Exam: POSITIVE: Alert, Oriented x 3, No Facial Droop, Speech Intact / Clear, Moves All Extremities Equally Data Perinent Studies: Laboratory Results 07/15/17 07/15/17 07/15/17 Range/Units 13:32 14:00 15:14 WBC 13.90 H (4.8-10.8) 10^3/uL RBC 4.34 (4.20-5.40) 10^6/uL Hgb 13.9 (12.0-16.0) g/dL Hct 40.3 (37.0-47.0) % MCV 92.9 (81-99) FL MCH 32.0 H (27-31) PG MCHC 34.5 (33-37) g/dL RDW Std Deviation 46.1 (39-50) fL RDW Coeff of Davina 13.9 (11.5-14.5) % Plt Count 238 (140-350) 10*3/uL MPV 10.2 (7.4-12.2) FL Immature Gran % (Auto) 0.1 (0-5) % Neut % (Auto) 86.2 H (50-80) % Lymph % (Auto) 9.5 L (10-50) % [place] % (Auto) 4.0 L (5-15) % Eos % (Auto) 0.1 (0-8) % Baso % (Auto) 0.1 (0-1) % Immature Gran # (Auto) 0.02 10*3/UL Neut # (Auto) 11.97 10*3/UL Lymph # (Auto) 1.32 10*3/uL [place] # (Auto) 0.56 (0.3-0.8) 10*3/UL Eos # (Auto) 0.02 10*3/UL Baso # (Auto) 0.01 10*3/UL WBC Morphology Comment Normal morphology (NORM) Plt Morphology Comment Normal morphology (NORM) RBC Morph Comment Normal morphology (NORM) PT 9.4 L (9.7-11.4) secs INR 0.89 (0.00-5.90) N/A APTT 31.3 (22.6-36.2) SECS D-Dimer 10.69 H (0.00-0.59) mg/L Sodium 137 (135-145) meq/L Potassium 4.5 (3.8-5.2) meq/L Chloride 97 L (98-112) meq/L Carbon Dioxide 27 (23-33) meq/L Anion Gap 13 (5-20) BUN 33 H (7-22) mg/dL Creatinine 1.5 H (0.50-1.20) mg/dL Estimated GFR Food Prep Worker BUN/Creatinine Ratio 22.00 H (6-20) Glucose 141 H (78-110) mg/dL Calculated Osmolality 292.0 (267-292) mOsm/kg Calcium 9.9 (8.7-10.7) mg/dL Total Bilirubin 0.5 (0.3-1.2) mg/dL AST 18 (8-39) IU/L ALT 26 (9-52) IU/L Alkaline Phosphatase 94 (38-126) IU/L CK-MB (CK-2) 0.71 (0.00-5.00) NG/ML Troponin I < 0.012 (< 0.040) ng/mL NT-Pro-B Natriuret Pep 949 H (0-450) PG/ML Total Protein 7.5 (6.1-8.0) g/dL Albumin 4.1 (3.5-4.8) g/dL Globulin 3.4 (2.50-4.10) g/dL Albumin/Globulin Ratio 1.20 L (1.3-2.0) mg/g 07/16/17 07/17/17 Range/Units 04:31 04:30 WBC 8.93 (4.8-10.8) 10^3/uL RBC 3.68 L (4.20-5.40) 10^6/uL Hgb 11.7 L (12.0-16.0) g/dL Hct 34.7 L (37.0-47.0) % MCV 94.3 (81-99) FL MCH 31.8 H (27-31) PG MCHC 33.7 (33-37) g/dL RDW Std Deviation 46.0 (39-50) fL RDW Coeff of Davina 13.9 (11.5-14.5) % Plt Count 208 (140-350) 10*3/uL MPV 10.1 (7.4-12.2) FL Immature Gran % (Auto) 0.2 (0-5) % Neut % (Auto) 75.3 (50-80) % Lymph % (Auto) 17.2 (10-50) % [place] % (Auto) 6.2 (5-15) % Eos % (Auto) 1.0 (0-8) % Baso % (Auto) 0.1 (0-1) % Immature Gran # (Auto) 0.02 10*3/UL Neut # (Auto) 6.72 10*3/UL Lymph # (Auto) 1.54 10*3/uL [place] # (Auto) 0.55 (0.3-0.8) 10*3/UL Eos # (Auto) 0.09 10*3/UL Baso # (Auto) 0.01 10*3/UL WBC Morphology Comment Normal morphology (NORM) Plt Morphology Comment Normal morphology (NORM) RBC Morph Comment Normal morphology (NORM) PT (9.7-11.4) secs INR (0.00-5.90) N/A APTT (22.6-36.2) SECS D-Dimer (0.00-0.59) mg/L Sodium 139 138 (135-145) meq/L Potassium 4.4 4.5 (3.8-5.2) meq/L Chloride 106 105 (98-112) meq/L Carbon Dioxide 27 26 (23-33) meq/L Anion Gap 6 7 (5-20) BUN 28 H 24 H (7-22) mg/dL Creatinine 1.2 1.2 (0.50-1.20) mg/dL Estimated GFR BUN/Creatinine Ratio 23.33 H 20.00 (6-20) Glucose 104 108 (78-110) mg/dL Calculated Osmolality 293.0 H 290.0 (267-292) mOsm/kg Calcium 8.9 9.2 (8.7-10.7) mg/dL Total Bilirubin (0.3-1.2) mg/dL AST (8-39) IU/L ALT (9-52) IU/L Alkaline Phosphatase (38-126) IU/L CK-MB (CK-2) (0.00-5.00) NG/ML Troponin I (< 0.040) ng/mL NT-Pro-B Natriuret Pep (0-450) PG/ML Total Protein (6.1-8.0) g/dL Albumin (3.5-4.8) g/dL Globulin (2.50-4.10) g/dL Albumin/Globulin Ratio (1.3-2.0) mg/g Patient Problems - Patient Problem List (1) Pulmonary embolism Current Visit: Yes Status: Acute (2) Lung cancer Current Visit: Yes Status: Resolved Qualifiers: Laterality: right Lung location: lower lobe of lung Qualified Description: Malignant neoplasm of lower lobe of right lung Qualifier Code (s): (C34.31) Malignant neoplasm of lower lobe, right bronchus or lung (3) Adrenal mass Current Visit: Yes Status: Acute Comment: It looks like this is a benign adenoma. (4) Diabetes mellitus type II, controlled Current Visit: Yes Status: Acute Qualifiers: Diabetes mellitus complication status: without complication Diabetes mellitus detention insulin use: without intermediate card tender use Qualified Description : Controlled type 2 diabetes mellitus without complication, without long-term current use of insulin Qualifier Code(s): (E11.9) Type 2 diabetes mellitus without complications (5) Peripheral edema Current Visit: Yes Status: Acute (6) Wandering (atrial) pacemaker Current Visit: Yes Status: Acute
--- NOTE | 2017-07-17 16:32 | DI ---
CT ABDOMEN SCAN WITHOUT AND WITH IV CONTRAST, 07/17/2017 7:33 AM : Clinical History: History of lung cancer. Left adrenal nodule. Previous Exam: None at this facility. Scans are performed from the lower lung bases through the liver and kidneys without and with IV contr ast. Sagittal and coronal reformatted images are generated. 65 ml of Isovue 300 was injected IV. Post contrast scans were obtained at the early arterial phase and during the portal venous phase. There is a 15 mm noncalcified lobulated nodule in the right lower lobe and this presumably represents the lung cancer. There is reflux of contrast into the IVC and hepatic veins and the IVC is dilated a nd this patient probably has elevated right heart pressures with tricuspid insufficiency. The liver i s normal. The patient is status post cholecystectomy and the common bile duct measures 10 mm. The rig ht adrenal gland is normal. The left adrenal gland has a low density roughly 10 mm nodule that on the noncontrast scans has a CT Hounsfield unit measurement of -5 Hounsfield units. This implies that the lesion is lipid rich and consistent with a benign adrenal adenoma. There is only minimal enhancement postcontrast. Both kidneys are normal in size, shape, position and contour. There is no hydronephros is or hydroureter. No renal or ureteral calculi are present. There are no abnormal retrocrural or per iaortic nodes. There is no ascites. READIN. A 10 mm left adrenal nodule is lipid rich on the noncontrast scans indicating it is consistent wi th a benign adenoma. 2. The remainder of the examination of the abdomen is normal. 3. The IVC is dilated and there is reflux of contrast during injection into the hepatic veins and th e IVC suggesting this patient has elevated right heart pressures as well as tricuspid insufficiency.
== END 2017-07-17 15:56 | disposition home or self-care (01) | DRG 176 ==
LOC: ER 13:31 → MED/SURG 17:08
PROVIDERS: ADMIT Family Medicine; ATTEND Family Medicine